=== PATIENT | female | born 1965 | race Caucasian/White ===

== ENCOUNTER 2024-04-22 13:27 | Outpatient (OUT) | payer BC, OTHER, SELFPAY ==
--- NOTE | 2024-04-22 13:36 | MM_ITS ---
Patient Name: DANY KHANNA MR#: [id number] : 1965 Exam Date: 04/22/2024 Ordering Doctor: DR Bishop Garcia . RADIOLOGY REPORT PROCEDURE: MM TOMOSYNTHESIS SCREENING BI COMPARISON: MG MAMM SCREEN JAIME W CAD, 02/22/2018. MG MAMM SCREEN JAIME W CAD, 11/28/2016. INDICATIONS: Screening Calculator Name NCI Breast Cancer Risk Assessment Tool 5 Year Breast Cancer Risk 2.60% Lifetime Breast Cancer Risk 15.40% Personal Breast Cancer No Personal Ovarian Cancer No Treatments None Family Cancers Sister with breast cancer at age 46; Grandmother-maternal with breast cancer at age 86; Mother with liver cancer at age 53. LOCATION: [facility] BREAST COMPOSITION: There are scattered areas of fibroglandular density. FINDINGS: DIAGNOSTIC CATEGORY 1--NEGATIVE. RIGHT BREAST: No significant suspicious finding. No significant change has occurred. LEFT BREAST: No significant suspicious finding. No significant change has occurred. RECOMMENDATIONS: ROUTINE MAMMOGRAM AND CLINICAL EVALUATION IN 12 MONTHS. PLEASE NOTE: A NORMAL MAMMOGRAM DOES NOT EXCLUDE THE POSSIBILITY OF BREAST CANCER. A CLINICALLY SUSPICIOUS PALPABLE LUMP SHOULD BE BIOPSIED. Dictated by: Jeramie Younger M.D. on 04/27/2024 at 08:24 Approved by: Jeramie Younger M.D. on 04/27/2024 at 09:32
== END 2024-04-22 13:28 | disposition home or self-care (01) ==
LOC: MAMMO 13:31
PROVIDERS: PCP Family Medicine; Visit Provider Family Medicine
DX: Z12.31 Encounter for screening mammogram for malignant neoplasm of breast (principal); Z80.3 Family history of malignant neoplasm of breast; Z80.8 Family history of malignant neoplasm of other organs or systems
CPT/HCPCS: 77063; 77067

== ENCOUNTER 2025-05-04 11:44 | Emergency (ER) | payer OTHER, BC, SELFPAY ==
--- OUTSIDE RECORDS SUMMARY | 2015-05-12 08:59 | XMS_ITS | Continuity of Care Document ---
Author Organization [facility] Address [address] [place] [address] Phone Care Team Providers Care Literacy Consultant Name Role Phone No Information Unavailable Unavailable Allergies, Adverse Reactions, Alerts Substance Reaction Status Criticality No Known Allergies Active No Inform ation Medications Medication Instructions Dosage Effective Dates (start - stop) Status Comments MULTIVITAMINS (unknown strength) Not Available - Active CINNAMON (unknown strength) Not Available - Active FISH OIL (unknown strength) Not Available - Active Problems Condition Type Effective Dates (start - stop) Clini afua Status Comments No Known Problems Procedures Procedure Date Cytopath Cerv/vag Thin Prep; R 15 Preven Meds E&m Estab Pt; 015 Smear Prim W/intrpt; Wet Mnt W 14 Cytopath Cerv/vag Thin Prep; R 14 Preven Meds E&m Estab Pt; 014 Cytopath Cerv/vag Thin Prep; R 13 Preven Meds E&m Estab Pt; 013 Preven Meds E&m Estab Pt; 012 Cytopath Cerv/vag Thin Prep; R 12 Init Preven Meds E&m New Pt; Cytopath Cerv/vag Thin Prep; R 11 Advance Directives Directive Yes / No Effective Date File Name No Information Encounters Encounter Description Practice Location Reason(s) For Visit Diagnoses Date Provider Providers Copied on Encounter [facility], [address], [place], [place], [id number], [place] tel:[phone] No Information 5 No Information Preven Meds E&m Estab Pt; [facility], [address], [place], [place], [id number], [place] tel:[phone] SWOB-ZH annual (chief complaint) 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 [address], [facility] [address], [place], [place], [facility], [place]. tel:[phone] Preven Meds E&m Estab Pt; [facility], [address], [place], [place], [id number], [place] tel:[phone] SWOB-ZH annual (chief complaint) vag itching (chief complaint) ROUTINE CAREER DEVELOPMENT CONSULTANT EXAMINATIONLe ukorrhea 4 Papito Price. [address], [facility] [address], [place], [place], [facility], [place]. tel:[phone] Preven Meds E&m Estab Pt; [facility], [address], [place], [place], [id number], [place] tel:[phone] SWOB-ZH annual exam (chief complaint) Routine CAREER DEVELOPMENT CONSULTANT Exam W/wo A Pap 3 Papito Price. [address], [facility] [address], [place], [place], [facility], [place]. tel:[phone] Preven Meds E&m Estab Pt; [facility], [address], [place], [place], [id number], [place] tel:[phone] SWOB-ZH No Information 2 Papito Price. [address], [facility] [address], [place], [address], [place]. tel:[phone] Init Preven Meds E&m New Pt; [facility], [address], [place], [place], [id number], [place] tel:[phone] [facility] [employer] SUPERVISOR No Information [address] [place], [facility], [place]. tel:[phone] Family History Family Member Type Diagnosis Age At Onset Paternal grandfather Problem (finding) hypertension Maternal grandmother Problem (finding) breast cancer Paternal grandfather Problem (finding) Pacemaker Father Problem (finding) hypertension Paternal grandmother Problem (finding) hypertension Paternal grandmother Problem (finding) Pacemaker Maternal grandmother Problem (finding) osteoporosis Payers Payer name Insurance type Covered constitution party ID Authoriza tijosh(s) Debbi Other (W) CI [id number] Social History Type Description Quantity Date Captured Comments Sex Female Smoking Status No Information Chief Complaint And Reason For Visit No Information Reason For Referral Reason For Referral No Information History Of Present Illness Encounter Date Complaint History Of Prese nt Illness annual Pt is a 49 y/o G [id number] who presents to the office today for her annual exam. She denies complaints at this time. For contraception she is currently using a vasectomy. Her most recent pap smear was last year and it was normal. Her FDLMP was 04/21/2015. Pt states that her menses are regular and appropriate. Denies fevers, chills, CP/SOB, and dysuria. Her last mammogram was a couple months ago and it was normal. 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
[2025-05-04] VITALS (8 sets, daily range): BP systolic 153–179; BP diastolic 76–92; PULSE 63–82; TEMP 36.9; O2SAT 96–99; BMI 32.8
--- OUTSIDE RECORDS SUMMARY | 2025-05-04 12:24 | XMS_ITS | Encounter Summary ---
Author Organization [facility] Address [id number] [place] [address] Care Team Providers Care Rivet Maker Name Role Phone Bishop Garcia MD Primary Care Provider [phone] Reason for Visit * Reason Comments Med Refill Encounter Details Date Type Department Care Team (Late st Contact Info) Description 12/18/2020 Refill [facility] [address] [place] [address] 1 [place] [id number] Madhu Schuler MD [address] [place] [address], 1 [place], [place] [id number] Social History Tobacco Use Types Packs/Day Years Used Date Smoking Tobacco: Never Smokeless Tobacco: Never Alcohol Use Standard Drinks/Week Comments No 0 (1 standard drink = 0.6 oz pur e alcohol) Childcare Answer Date Recorded Childcare Unknown 12/29/2018 Employment Answer Date Recorded Employment Unknown 12/29/2018 Purpose - Life Answer Date Recorded Purpose and direction in life Unknown Comments Unknown Sex and Gender Information Value Date Recorded Sex Assigned at Not on file Legal Sex Female 12:01 PM EDT Gender Identity Not on file Sexual Orientation Not on file documented as of this encounter Miscellaneous Notes * Telephone Encounter - Keke Preston CMA - 12/18/2020 10:16 AM EDT Patient must call the office for an appointment documented in this encounter Plan of Treatment Not on file documented as of this encounter Visit Diagnoses Not on filedocumented in this encounter Care Teams Rivet Maker Relationship Specialty Start Date End Date Bishop Garcia MD PCP - General Family Medicine 05/20/21 documented as of this encounter
--- OUTSIDE RECORDS SUMMARY | 2025-05-04 12:24 | XMS_ITS | Clinical Summary ---
Author Organization [facility] Address [id number] [place] [address] Care Team Providers Care Screen Door Maker Name Role Phone Bishop Garcia MD Primary Care Provider [phone] Allergies Active Allergy Reactions Criticality Noted Date Comments Nebivolol Itching 12/01/2019 Loratadine Rash Low 01/02/2017 Lisinopril Swelling 12/01/2019 Tounge/Throat Swelling Medications estrogens, conjugated, (PREMARIN) 0.625 mg tablet Take 0.625 mg by mouth daily. Take daily for 21 days then do not take for 7 days. Active spironolactone (ALDACTONE) 25 mg tablet Take 1 tablet (25 mg total) by mouth daily. 30 tablet 09/14/2020 Active losartan-hydroCH LOROthiazide (HYZAAR) 100-25 mg per tablet Take 1 tablet by mouth daily. 30 tablet 09/14/2020 Active bisoprolol (ZEBETA) 5 mg tablet Take 1 tablet (5 mg total) by mouth daily. 30 tablet 11/12/2020 Active Active Problems Problem Noted Date Diagnosed Date First degree atrioventricular block 12/01/2019 Essential hypertension 12/01/2019 Aortic stenosis due to bicuspid aortic valve Other chest pain 12/01/2019 Abnormal ECG 12/01/2019 Encounter for lipid screening for cardiovascular disease 12/01/2019 Family History Medical History Relation Name Comments Breast cancer Maternal Grandmother Relation Name Status Comments Maternal Grandmother Social History Tobacco Use Types Packs/Day Years [...] on file Sexual Orientation Not on file Last Filed Vital Signs Vital Sign Reading Time Taken Comments Blood Pressure 116/82 12/01/2019 9:03 AM EDT Pulse 68 12/01/2019 9:03 AM EDT Temperature 36.4 C (97.5 F) 01/02/2017 10:27 AM EDT Respiratory Rate 17 01/02/2017 12:10 PM EDT Oxygen Saturation 97% 01/02/2017 12:19 PM EDT Inhaled Oxygen Concentration - - Weight 93 kg (205 lb) 12/01/2019 9:03 AM EDT Height 160 cm (5' 3 ) 12/01/2019 9:03 AM EDT Body Mass Index 36.31 12/01/2019 9:03 AM EDT Plan of Treatment Health Maintenance Due Date Last Done Comments Depression Screening 1978 Tobacco Screening 1978 Adult BMI Screening 1984 Pap Smear 1987 Zoster (Shingles) Vaccine (1 of 2) 2016 Influenza Vaccine 03/20/2025 DTaP,Tdap and Td Vaccines (2 - Td or Tdap) 11/26/2030 11/26/2020 Medical Devices Not on file Insurance [id number] Care Teams Screen Door Maker Relationship Specialty Start Date End Date Bishop Garcia MD PCP - General Family Medicine 05/20/21
--- OUTSIDE RECORDS SUMMARY | 2025-05-04 12:24 | XMS_ITS | Encounter Summary ---
Author Organization [facility] Address [id number] [place] [address] Care Team Providers Care Boat Loader Name Role Phone Bishop Garcia MD Primary Care Provider [phone] Reason for Visit * Reason Comments Med Refill Encounter Details Date Type Department Care Team (Late st Contact Info) Description 12/12/2020 Refill [facility] [address] [place] [address] 1 [place] [id number] Madhu Schuler MD [address] [place] [address], 1 [place], [place] [id number] Social History Tobacco Use Types Packs/Day Years [...] on file documented as of this encounter Plan of Treatment Not on file documented as of this encounter Visit Diagnoses Not on filedocumented in this encounter Care Teams Boat Loader Relationship Specialty Start Date End Date Bishop Garcia MD PCP - General Family Medicine 05/20/21 documented as of this encounter
--- OUTSIDE RECORDS SUMMARY | 2025-05-04 12:24 | XMS_ITS | Patient Health Record ---
Author Organization [facility] [place] Address [address] [place] [address] Care Team Providers Care Law Professor Name Role Phone Madhu Schuler MD Primary Care Provider Unavaila ble Reason For Referral No Information Medications Medication SIG (Take, Route, Fr equency, Duration) Notes Start Date End Date Status traMADol HCl 50 mg tablet Active Aleve sodium 220 mg tablet Active Plan Of Treatment No Information Insurance Providers Payer Name Payer Address Payer Phone Subscriber Number Group Number Insured Name Patient Relationship to Insured Coverage Start Date Coverage End Date SELF PAY ON PATIENT DEMOGRAPHICS Angelica Juarez Self - patient is the insured 0 Medical (General) History Surgical History Surgery Date(Month/Year) History of hysterectomy History of appendectomy Surgical / procedural history ROTATOR CU FF LEFT SHOULDER History of cholecystectomy History of hernia repair
--- OUTSIDE RECORDS SUMMARY | 2025-05-04 12:24 | XMS_ITS | Encounter Summary ---
Author Organization [facility] Address [address] [place] [address] Care Team Providers Care Graduate Teacher Education Name Role Phone Bishop Garcia MD Primary Care Provider [phone] Bishop Garcia MD Unavailable Bishop Garcia MD Unavailable Encounter Details Date Type Department Care Team (Late st Contact Info) Description 04/27/2024 Clinisync Result Encounter [facility] External Department Unsolicited Bishop Garcia MD [address] [place] [phone] Social History Tobacco Use Types Packs/Day Years Used Date Smoking Tobacco: Never Smokeless Tobacco: Never Alcohol Use Standard Drinks/Week Comments Yes 0 (1 standard drink = 0.6 oz pure alcohol) caffeine: 2-3 cups per day soda/pop Social Connection and Isolation Panel Answer Date Recorded In a typical week, how many times do you talk on the phone with family, friends, or neighbors? Patient declined 10/30/2023 How often do you get togethe r with friends or relatives? Patient declined 10/30/2023 How often do you attend mormonism or mu-ism serv ices? Patient declined 10/30/2023 Do you belong to any clubs o r organizations such as mormonism groups, unions, fraternal or athletic groups, or school groups? No 10/30/2023 How often do you attend meet ings of the clubs or organizations you belong to? Never 10/30/2023 Are you , , di vorced, , never , or living with a partner? 10/30/2023 AUDIT-C Answer Date Recorded Q1: How often do you have a drink containing alc ohol? Monthly or less 10/30/2023 Q2: How many drinks containi ng alcohol do you have on a typical day when you are drinking? 1 or 2 10/30/2023 Q3: How often do you have si x or more drinks on one occasion? Never 10/30/2023 Overall Financial Resource Strain (CARDIA) Answe r Date Recorded How hard is it for you to pa y for the very basics like food, housing, medical care, and heating? Not very hard 10/30/2023 PHQ-2 Answer Date Recorded Patient Health Questionnaire-2 Score 2 11/06/2023 Exercise Vital Sign Answer Date Recorde d On average, how many days pe r week do you engage in moderate to strenuous exercise (like a brisk walk)? Patient declined On average, how many minutes do you engage in exercise at this level? Patient declined 10/30/2023 Hunger Vital Sign Answer Date Recorded Within the past 12 months, y ou worried that your food would run out before you got the money to buy more. Sometimes true Within the past 12 months, t he food you bought just didn't last and you didn't have money to get more. Patient declined 06/2024 PRAPARE - Transportation Answer Date Re corded In the past 12 months, has l ack of transportation kept you from medical appointments or from getting medications? No 10/18 In the past 12 months, has l ack of transportation kept you from meetings, work, or from getting things needed for daily living? No 10/30/2023 Housing Stability Vital Sign Answer Ismael e Recorded In the last 12 months, was t here a time when you were not able to pay the mortgage or rent on time? No 10/30/2023 In the last 12 months, how many places have you lived? 1 10/30/2023 In the last 12 months, was t here a time when you did not have a steady place to sleep or slept in a penitentiary (including now)? No 10/30/2023 Comments Unknown Sex and Gender Information Value Date Recorded Sex Assigned at Female 09/24/2023 8:22 AM EST Legal Sex Female 11:01 PM EDT Gender Identity Female 09/24/2023 8:22 AM EST Sexual Orientation Not on file documented as of this encounter Plan of Treatment Not on file documented as of this encounter Procedures Procedure Name Priority Date/Time Associated Diagnosis Comments MM TOMOSYNTHESIS SCREENING BI 04/27/2024 9:32 AM EDT documented in this encounter Results * MM TOMOSYNTHESIS SCREENING BI (04/27/2024 9:32 AM EDT) Anatomical Region Laterality Modality Other 04/27/2024 9:32 AM EDT Narrative 04/27/2024 9:33 [place] [address] Mammography Report Signed Patient: ANGELICA JUAREZ MR#: [id number] : 1965 Acct:[id number] Age/Sex: 58 / F ADM Date: 04/22/24 Loc: MAMMO Attending Dr: Bishop Garcia M.D. Ordering Physician: Bishop Garcia M.D. Results: Date of Service: 04/22/24 Follow Up: Procedure(s): MM tomosynthesis screening BI Accession Number(s): [id number] cc: Bishop Garcia M.D. Patient Name: ANGELICA JUAREZ MR#: [id number] : 1965 Exam Date: 04/22/2024 Ordering Doctor: DR Bishop Garcia . RADIOLOGY REPORT PROCEDURE: MM TOMOSYNTHESIS SCREENING BI COMPARISON: MG MAMM SCREEN JAIME W CAD, 02/22/2018. MG MAMM SCREEN JAIME W CAD, 11/28/2016. INDICATIONS: Screening Calculator Name NCI Breast Cancer Risk Assessment Tool 5 Year Breast Cancer Risk 2.60% Lifetime Breast Cancer Risk 15.40% Personal Breast Cancer No Personal Ovarian Cancer No Treatments None Family Cancers Sister with breast cancer at age 46; Grandmother-maternal with breast cancer at age 86; Mother with liver cancer at age 53. LOCATION: [facility] BREAST COMPOSITION: There are scattered areas of fibroglandular density. FINDINGS: DIAGNOSTIC CATEGORY 1--NEGATIVE. RIGHT BREAST: No significant suspicious finding. No significant change has occurred. LEFT BREAST: No significant suspicious finding. No significant change has occurred. RECOMMENDATIONS: ROUTINE MAMMOGRAM AND CLINICAL EVALUATION IN 12 MONTHS. PLEASE NOTE: A NORMAL MAMMOGRAM DOES NOT EXCLUDE THE POSSIBILITY OF BREAST CANCER. A CLINICALLY SUSPICIOUS PALPABLE LUMP SHOULD BE BIOPSIED. Dictated by: Jeramie Younger M.D. on 04/27/2024 at 08:24 Approved by: Jeramie Younger M.D. on 04/27/2024 at 09:32 Dictated By: Jeramie Younger M.D. Signed By: 04/27/24932 DD/ 1 TD/TT: Renal Social Worker: Procedure Note Radiology, Radiologist, MD - 04/27/2024 [place] [address] Mammography Report Signed Patient: ANGELICA JUAREZ DMR#: [id number] : 1965Acct:[id number] Age/Sex: 58 / FADM Date: 04/22/24 Loc: MAMMO Attending Dr: Bishop Garcia M.D. Ordering Physician: Bishop Garcia M.D.Results: Date of Service: 04/22/24Follow Up: Procedure(s): MM tomosynthesis screening BI Accession Number(s): [id number] cc: Bishop Garcia M.D. Patient Name: ANGELICA JUAREZ MR#: [id number] : 1965 Exam Date: 04/22/2024 Ordering Doctor: DR Bishop Garcia . RADIOLOGY REPORT PROCEDURE: MM TOMOSYNTHESIS SCREENING BI COMPARISON: MG MAMM SCREEN JAIME W CAD, 02/22/2018. MG MAMM SCREEN JAIME W CAD, 11/28/2016. INDICATIONS: Screening Calculator Name NCI Breast Cancer Risk Assessment Tool 5 Year Breast Cancer Risk 2.60% Lifetime Breast Cancer Risk 15.40% Personal Breast Cancer No Personal Ovarian Cancer No Treatments None Family Cancers Sister with breast cancer at age 46;Grandmother-maternal with breast cancer at age 86; Mother with liver cancer at age 53. LOCATION: [facility] BREAST COMPOSITION: There are scattered areas of fibroglandulardensity. FINDINGS: DIAGNOSTIC CATEGORY 1--NEGATIVE. RIGHT BREAST: No significant suspicious finding. No significant changehas occurred. LEFT BREAST: No significant suspicious finding. No significant changehas occurred. RECOMMENDATIONS: ROUTINE MAMMOGRAM AND CLINICAL EVALUATION IN 12 MONTHS. PLEASE NOTE: A NORMAL MAMMOGRAM DOES NOT EXCLUDE THE POSSIBILITY OFBREAST CANCER. A CLINICALLY SUSPICIOUS PALPABLE LUMP SHOULD BE BIOPSIED. Dictated by: Jeramie Younger M.D. on 04/27/2024 at 08:24 Approved by: Jeramie Younger M.D. on 04/27/2024 at 09:32 Dictated By: Jeramie Younger M.D. Signed By:04/27/24932 DD/ 1 TD/TT: Renal Social Worker: Bishop Garcia MD [facility] Final Result documented in this encounter Visit Diagnoses Not on filedocumented in this encounter Care Teams Graduate Teacher Education Relationship Specialty Start Date End Date Bishop Garcia MD PCP - General Family Medicine 11/06/23 Bishop Garcia MD [address] [place] [phone] PCP - [employer] 12/19/23 Bishop Garcia MD [address] [place] [phone] PCP - Medical [employer] 06/19/21 07/19/99 documented as of this encounter
--- OUTSIDE RECORDS SUMMARY | 2025-05-04 12:24 | XMS_ITS | Clinical Summary ---
Author Organization [facility] Healthcare Address [address] [place] [address] Care Team Providers Care Grid Maker Name Role Phone Bishop Garcia MD Primary Care Provider [phone] Bishop Garcia MD Unavailable Allergies Active Allergy Reactions Criticality Noted Date Comments Nebivolol Hcl 07/22/2023 Loratadine 07/22/2023 Lactose Swelling,Rash Low 10/25/2024 Lisinopril 07/22/2023 Medications cholecalciferol (Vitamin D-3) 50 MCG (1999) capsule Take 2,000 Units by mouth in the morning. Active venlafaxine XR (Effexor XR) 75 MG 24 hr capsuleIndicati ons:Generalized anxiety disorder Take 1 capsule (75 mg) by mouth Daily Take with food. 30 capsule 3 12/27/2024 Active spironolactone (Aldactone) 25 MG tabletIndicatio ns:Essential hypertension, benign Take 1 tablet (25 mg) by mouth Daily 90 tablet 3 01/10/2025 Active losartan-hydroC HLOROthiazide (Hyzaar) 100-25 MG tabletIndicatio ns:Essential hypertension, benign Take 1 tablet by mouth Daily 90 tablet 3 01/10/2025 Active venlafaxine XR (Effexor XR) 150 MG 24 hr capsuleIndicati ons:Generalized anxiety disorder Take 1 capsule (150 mg) by mouth Daily Do not crush or chew. 30 capsule 3 03/06/2025 Active Active Problems Problem Noted Date Diagnosed Date Chest pain 12/27/2024 Assessment & Plan (12/27/2024 2:41 PM EDT): Recent pain and continued heaviness. Check treadmill cardiolyte to assess for ischemia. Lightheaded 12/27/2024 Assessment & Plan (12/27/2024 2:42 PM EDT): Check echo. Essential hypertension, benign 11/06/2023 Assessment & Plan (12/27/2024 2:41 PM EDT): BP controlled and monitor PRN. Assessment & Plan (01/11/2024 2:28 PM EDT): BP controlled and monitor PRN. Assessment & Plan (12/07/2023 3:22 PM EDT): BP controlled and monitor PRN. Assessment & Plan (11/06/2023 9:44 AM EDT): BP controlled and monitor PRN. Chronic pain of both knees 11/06/2023 DDD (degenerative disc disease), lumbar 11/06/19 Generalized anxiety disorder 11/06/2023 Assessment & Plan (12/27/2024 2:42 PM EDT): Worsening symptoms and add effexor. Assessment & Plan (01/11/2024 2:38 PM EDT): Mood well controlled with effexor and continue at current dose. Assessment & Plan (12/07/2023 3:22 PM EDT): Symptoms worse and increase effexor. Warned will take 2-3 months to notice improvement in mood. Generalized osteoarthrosis, involving multiple s ites 11/06/2023 Assessment & Plan (11/06/2023 9:44 AM EDT): Pain in multiple joints and relafen not helping. Try celebrex. Vitamin D deficiency 11/06/2023 Greater trochanteric bursitis of right hip 11/05 Assessment & Plan (01/11/2024 2:38 PM EDT): Pain improved after injection and follow with ortho. Assessment & Plan (12/07/2023 3:23 PM EDT): No improvement in pain and continues to limit activity. Use daypro and ice PRN. Refer to ortho for possible injections. Assessment & Plan (11/06/2023 9:44 AM EDT): Severe pain and tenderness with palpation. Treat with prednisone. Ice PRN. Handout with exercises to patient. If no improvement will need ortho for possible injections. Class 1 obesity due to exces s calories with serious comorbidity and body mass index (BMI) of 32.0 to 32.9 in adult 11/06/2023 Assessment & Plan (01/11/2024 2:38 PM EDT): Patient doing well with adipex and lost 13 pounds in 2 months. Tolerating well with only mild dry mouth. Continue with dietary changes and less calories. Need to limit snacking and smaller portions. Continue healthier choices. Need regular aerobic exercise 30 minutes at a time 5-6 days a week. Refill for another month. OARRS reviewed. Continue meds as prescribed. If develop new or worsening symptoms contact office. Assessment & Plan (12/07/2023 3:23 PM EDT): Patient doing well with adipex and lost 7 pounds in first month. Tolerating well with only mild dry mouth. Continue with dietary changes and less calories. Need to limit snacking and smaller portions. Continue healthier choices. Need regular aerobic exercise 30 minutes at a time 5-6 days a week. Refill for second month. OARRS reviewed. Continue meds as prescribed. If develop new or worsening symptoms contact office. Assessment & Plan (11/06/2023 9:44 AM EDT): Patient overweight and difficult time losing weight. Discussed proper diet and regular aerobic exercise. Recommend Weight Watchers and need to limit calories and smaller portions. Need to increase activity and regular aerobic exercise several days a week for 30 minutes at a time. Interested in adipex and warned of potential cardiac side effects. Script written for first month and will need to recheck weight in 1 month. OARRS reviewed. Continue medications as prescribed. Aortic stenosis due to bicuspid aortic valve ( [facility]) 12/01/2019 Assessment & Plan (12/27/2024 2:41 PM EDT): Frequently lightheaded and check echo. Resolved Problems Problem Noted Date Diagnosed Date Resolved Date Chronic superficial gastriti s without bleeding 11/06/2023 01/11/2024 Left arm pain 11/06/2023 12/27/2024 Encounters Date Type Department Care Team Description 03/06/2025 Refill [facility] [address] [place] [address] Bishop Garcia MD Generalized anxiety disorder from Last 3 Months Family History Medical History Relation Name Comments Heart disease Maternal Grandfather Hypertension Maternal Grandfather Stroke Maternal Grandfather Cancer Maternal Grandmother Diabetes Maternal Grandmother Heart disease Mother Hypertension Mother Liver cancer Mother Breast cancer Sibling Relation Name Status Comments Maternal Grandfather Maternal Grandmother Mother Sibling Social History Tobacco Use Types Packs/Day Years Used Date Smoking Tobacco: Never Smokeless Tobacco: Never Tobacco Cessation:Counseling Given: Not Answered Alcohol Use Standard Drinks/Week Comments Yes 0 [...] declined 10/30/2023 How often do you attend sabianism or confucianism serv ices? Patient declined 10/30/2023 Do you belong to any clubs o r organizations such as sabianism groups, unions, fraternal or athletic groups, or [...] place to sleep or slept in a custodial (including now)? No 10/30/2023 Comments Unknown Sex and Gender Information Value Date Recorded Sex Assigned at Female 09/24/2023 8:22 AM EST Legal Sex Female 11:01 PM EDT Gender Identity Female 09/24/2023 8:22 AM EST Sexual Orientation Not on file Last Filed Vital Signs Vital Sign Reading Time Taken Comments Blood Pressure 128/88 12/27/2024 2:06 PM EDT Pulse 44 12/27/2024 2:06 PM EDT Temperature 36.2 C (97.2 F) 12/27/2024 2:06 PM EDT Respiratory Rate 22 12/27/2024 2:06 PM EDT Oxygen Saturation 92% 12/27/2024 2:06 PM EDT Inhaled Oxygen Concentration - - Weight 85.7 kg (189 lb) 12/27/2024 2:06 PM EDT Height 162.6 cm (5' 4 ) 12/27/2024 2:06 PM EDT Body Mass Index 32.44 12/27/2024 2:06 PM EDT Plan of Treatment Health Maintenance Due Date Last Done Comments CT Colonography 1966 FIT-DNA 1966 FIT 1966 FOBT 1966 Sigmoidoscopy 1966 Pap Smear 1987 Cervical Cancer Screening 1996 HPV/Cotest 1996 Influenza Vaccine (#1) 2025 Mammogram 04/27/2025 04/27/2024, 08/0 12/2017, 11/28/2016, Additional history exists Colonoscopy 01/02/2027 01/02/2017 Colorectal Cancer Screening 01/02/2027 Goals Goal Patient Goal Type Associated Problems Recent Progress Patient-Stated? Author Help patient manage antidepressant medication Care Plan Patient on antidepressant monitoring plan No Marta Tello Baseline PHQ-9 Care Plan Baseline PHQ-9 No Marta Tello Procedures Procedure Name Priority Date/Time Associated Diagnosis Comments MM TOMOSYNTHESIS SCREENING BI 04/27/2024 9:32 AM EDT from Last 3 Months or Most Recently Relevant to Health Maintenance Results * MM TOMOSYNTHESIS SCREENING BI (04/27/2024 9:32 AM EDT) Anatomical Region Laterality Modality Other 04/27/2024 9:32 AM EDT Narrative 04/27/2024 9:33 AM EDT The [address] [address] Mammography Report Signed Patient: ANGELICA JUAREZ MR#: [id number] : 1965 Acct:[id number] Age/Sex: 58 / F ADM Date: 04/22/24 Loc: MAMMO Attending Dr: Bishop Garcai M.D. Ordering Physician: Bishop Garcia M.D. Results: Date of Service: 04/22/24 Follow Up: Procedure(s): MM tomosynthesis screening BI Accession Number(s): [id number] cc: Bishop Garcia M.D. Patient Name: ANGELICA JUAREZ MR#: [id number] : 1965 Exam Date: 04/22/2024 Ordering Doctor: [...] liver cancer at age 54. LOCATION: The [facility] BREAST COMPOSITION: There are scattered areas of [...] M.D. Signed By: 04/27/24932 DD/ 1 TD/TT: Disk Grinder: Procedure Note Radiology, Radiologist, - 04/27/2024 [place] [address] Mammography Report Signed Patient: ANGELICA JUAREZ DMR#: [id number] : 1965Acct:[id number] Age/Sex: 58 / FADM Date: 04/22/24 Loc: MAMMO Attending Dr: Bishop Garcia M.D. Ordering Physician: Bishop Garcia M.D.Results: Date of Service: 04/22/24Follow Up: Procedure(s): MM tomosynthesis screening BI Accession Number(s): [id number] cc: Bishop Garcia M.D. Patient Name: ANGELICA JUAREZ MR#: [id number] : 1965 Exam Date: 04/22/2024 Ordering Doctor: DR Bishop Velázquez RADIOLOGY REPORT PROCEDURE: MM TOMOSYNTHESIS SCREENING BI [...] liver cancer at age 54. LOCATION: The [facility] BREAST COMPOSITION: There are scattered areas of [...] Younger M.D. Signed By:04/27/24932 DD/ 1 TD/TT: Disk Grinder: Bishop Garcia MD [facility] Final Result from Last 3 Months or Most Recently Relevant to Health Maintenance Additional Health Concerns Active Problems Noted Date Diagnosed Date Patient on antidepressant monitoring plan 2024 Baseline PHQ-9 03/06/2025 Insurance [employer] Care Teams Grid Maker Relationship Specialty Start Date End Date Bishop Garcia MD PCP - General Family Medicine 11/06/23 Bishop Garcia MD [address] [place] [address] PCP - Medical [place] [employer] 06/19/21 07/19/99
--- OUTSIDE RECORDS SUMMARY | 2025-05-04 12:25 | XMS_ITS | CCD ---
Author Organization [facility] InformFormerly [facility] Care Team Providers Care 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 Name Role Phone BISHOP STARK Attending Unavailable BISHOP STARK Consulting Unavailable BISHOP STARK Primary Care Unavailable BISHOP STARK Admitting Unavailable Nori De La Fuente Unavailable Michelle Canales Unavailable Ángela Unger Unavailable Bishop Stark MD Primary Care Provider Bishop Stark MD Unavailable Bishop Stark MD Unavailable KIRK WALDRON Attending Unavailable KIRK WALDRON Referring Unavailable BISHOP STARK Attending Unavailable BISHOP STARK Attending Unavailable Allergies Allergy Classification Reported Allergen(s) Allergy Type Date of Onset Reaction(s) Facility (1 source) Loratadine Drug Allergy 3 [facility]ository (4 sources) Loratadine Drug Allergy Unknown [facility] Other (8 sources) Lisinopril Propensity to adverse reactions 4 [facility] (8 sources) Loratadine Propensity to adverse reactions 4 [facility] (8 sources) nebivolol Drug Allergy 4 [facility] (7 sources) Lactose (non-medical use) Propensity to adverse reactions 5 Swelling, Rash [facility] Healthcare Medications Current Medications Medication Drug Class(es) Dates Sig (Normalized) Sig (Original) [id number] 200 actuat albuterol 0.09 mg/actuat metered dose inhaler (3 sources) beta2-Adrenergic Agonist Start: 06-19-2023 take 2 puff(s) by inhalation every four to six hours as needed Albuterol Sulfate HFA 108 (90 Base) MCG/ACT 2 puffs as needed Inhalation every 4-6 hours for 14 days Jun, Active Start: 06-19-2023 take 2 puff(s) by in halation every four to six hours as needed Albuterol Sulfate HFA 108 (90 Base) MCG/ACT 2 puffs as needed Inhalation every 4-6 hours for 14 days Jun, Not-Taking/PRN benzonatate 100 mg oral capsule (3 sources) Non-narcotic Antitussive Start: 06-23-2023 take 1 capsule by mouth three times daily as needed Tessalon Perles 100 MG 1 capsule as needed Orally Three times a day for 7 days Jun, Active cholecalciferol 0.05 mg oral capsule (8 sources) Vitamin D take 1 capsule by mouth in the morning cholecalciferol (Vitamin D-3) 50 MCG (2000 UT) capsule Take 2,000 Units by mouth in the morning. Active hydroCHLOROthiazide 25 mg / losartan potassium 100 mg oral tablet (13 sources) Thiazide Diuretic, Angiotensin 2 Receptor Betito Start: 03-10-2024 End: 03-10-2025 take 1 tablet by mouth once daily losartan-hydroCHLOR Othiazide (Hyzaar) 100-25 MG tablet Indications: Essential hypertension, benign Take 1 tablet by mouth Daily 90 tablet 3 01/10/2025 Active take 1 tablet by ines th every twenty-four hours Losartan Potassium-HCTZ 50-12.5 MG 1 tab let Orally Once a day Active meloxicam 15 mg oral tablet (2 sources) Nonsteroidal Anti-inflammatory Drug Start: 10-25-2024 End: 11-15-2024 take 1 tablet by mouth once daily meloxicam (Mobic) 15 MG tablet Indications: Peroneal tendinitis of right lower extremity Take 1 tablet (15 mg) by mouth Daily for 21 days 21 tablet 10/25/2024 11/15/2024 Active predniSONE 20 mg oral tablet (1 source) Start: 07-07-2023 take 2 tablets by mouth once daily, then take 1-4 tablets by mouth once daily, then take 5-7 tablets by mouth once daily at mealtime predniSONE 20 MG 2 tablets Day 1-4, 1 tablet Day 5-7 Orally Once a day WITH FOOD for 7 days Jun, Active spironolactone 25 mg oral tablet (13 sources) Aldosterone Antagonist Start: 08-13-2023 End: 10-25-2025 take 1 tablet by mouth once daily spironolactone (Aldactone) 25 MG tablet Indications: Essential hypertension, benign Take 1 tablet (25 mg) by mouth Daily 90 tablet 3 01/10/2025 Active take 1 tablet by ines th every twelve hours Spironolactone 25 MG 1 tablet Orally Twi ce a day Active 24 hr venlafaxine 75 mg extended release oral capsule (12 sources) Serotonin and Norepinephrine Reuptake Inhibitor Start: 12-27-2024 take 1 capsule by mouth once daily at mealtime venlafaxine XR (Effexor XR) 75 MG 24 hr capsule Indications: Generalized anxiety disorder Take 1 capsule (75 mg) by mouth Daily Take with food. 30 capsule 3 12/27/2024 Active Start: 01-26-2024 take 1 capsule by mo uth once daily venlafaxine XR (Effexor XR) 150 MG 24 hr capsule Indications: Generalized anxiety disorder Take 1 capsule (150 mg) by mouth Daily Do not crush or chew. 30 capsule 3 01/26/2024 Active Completed/Discontinued Medications Medication Drug Class(es) Dates Sig (Normalized) Sig (Original) cephalexin 500 mg oral capsule (4 sources) Cephalosporin Antibacterial Start: 2 take 1 capsule by mouth every eight hours Cephalexin 500 MG 1 capsule Orally three times a day for 10 day(s) May, Not-Taking/PRN dextromethorphan hydrobromide 1.5 mg/ml / pyrilamine maleate 1.5 mg/ml oral solution (3 sources) Uncompetitive E-klkfrj-J-asparta te Receptor Antagonist, Sigma-1 Agonist Start: 3 take 10 mL by mouth every eight hours as needed [place] DM 7.5-7.5 MG/5ML 10 mL Orally every 8 hours for 5 days Jun, Not-Taking/PRN methylPREDNISolone (8 sources) Corticosteroid Start: 5 End: 5 methylPREDNISolone (Medrol Dospak) 4 MG tablets Indications: Peroneal tendinitis of right lower extremity Take as directed on package. 21 tablet 10/25/2024 12/27/2024 Discontinued Start: 10-25-2024 methylPREDNISo lone (Medrol Dospak) 4 MG tablets Indications: Peroneal tendinitis of right lower extremity Take as directed on package. 21 tablet 10/25/2024 Active Start: 06-19-2023 methylPREDNISo lone 4 MG as directed Orally for 6 Jun, Not-Taking/PRN PARoxetine (4 sources) Serotonin Reuptake Inhibitor PAR oxetine HCl Not-Taking/PRN PARoxetine HCl N ot-Taking PARoxetine HCl A ctive phentermine hydrochloride 37.5 mg oral tablet (3 sources) Sympathomimetic Amine Anorectic Start: 01-11-2024 End: 10-25-2024 take 1 tablet by mouth before mealtime phentermine (Adipex-P) 37.5 MG tablet Indications: Obesity (BMI 30-39.9) Take 1 tablet (37.5 mg) by mouth in the morning. Take before meals. 30 tablet 01/11/2024 10/25/2024 Discontinued (Therapy completed) Problems Active Problems Problem Classification Problem Date Documented Da te Episodic/Chronic Acute bronchitis (1 source) Acute bronchitis due to other specified organisms Episodic Anxiety disorders (10 sources) Generalized anxiety disorder; Translations: [Generalized anxiety disorder] Onset: 11-06-2023 11-06-2023 Chronic Conditions associated with dizziness or vertigo (8 sources) Lightheadedness; Translations: [Dizziness and giddiness] Onset: 12-27-2024 12-27-2024 Episodic Essential hypertension (13 sources) Benign essential hypertension; Translations: [Essential (primary) hypertension] Onset: 11-06-2023 11-06-2023 Chronic Gastritis and duodenitis (8 sources) Chronic superficial gastritis; Translations: [Chronic superficial gastritis without bleeding] Onset: 11-06-2023 Resolved: 01-11-2024 01-11-2024 Chronic Heart valve disorders (12 sources) Aortic valve stenosis; Translations: [Nonrheumatic aortic (valve) stenosis] Onset: 12-01-2019 11-06-2023 Chronic Nonspecific chest pain (12 sources) Chest pain; Translations: [Chest pain, unspecified] Onset: 12-27-2024 12-27-2024 Episodic Nutritional deficiencies (8 sources) Vitamin D deficiency; Translations: [Vitamin D deficiency, unspecified] Onset: 11-06-2023 11-06-2023 Chronic Open wounds of extremities (1 source) Puncture wound without foreign body, right foot, initial encounter Episodic Osteoarthritis (8 sources) Degenerative joint disease involving multiple joints; Translations: [Polyosteoarthritis, unspecified] Onset: 11-06-2023 11-06-2023 Chronic Other bone disease and musculoskeletal deformities (1 source) Chondrocostal junction syndrome [Tietze] Episodic Other connective tissue disease (2 sources) Peroneal tendinitis of right lower limb; Translations: [Peroneal tendinitis, right leg] 10-25-2024 Episodic Other connective tissue disease (2 sources) Pain in right foot; Translations: [Pain in right foot] 10-25-2024 Episodic Other nervous system disorders (2 sources) Difficulty walking; Translations: [Difficulty in walking, not elsewhere classified] 10-25-2024 Chronic Other non-traumatic joint disorders (2 sources) Instability of joint of right ankle; Translations: [Other instability, right ankle] 10-25-2024 Episodic Other nutritional; endocrine; and metabolic disorders (4 sources) Body mass index 30+ - obesity; Translations: [Obesity, unspecified] Onset: 11-06-2023 11-06-2023 Chronic Other nutritional; endocrine; and metabolic disorders (4 sources) Obesity caused by energy imbalance; Translations: [Class 1 obesity due to excess calories with serious comorbidity and body mass index (BMI) of 32.0 to 32.9 in adult] Onset: 11-06-2023 12-27-2024 Chronic Spondylosis; intervertebral disc disorders; other back problems (8 sources) Degeneration of lumbar intervertebral disc; Translations: [DDD (degenerative disc disease), lumbar] Onset: 11-06-2023 11-06-2023 Chronic Past or Other Problems Problem Classification Problem Date Documented Da te Episodic/Chronic Other connective tissue disease (8 sources) Pain in left arm; Translations: [Pain in left arm] Onset: 11-06-2023 Resolved: 12-27-2024 11-06-2023 Episodic Other connective tissue disease (8 sources) Trochanteric bursitis; Translations: [Trochanteric bursitis, right hip] Onset: 11-06-2023 11-06-2023 Episodic Other non-traumatic joint disorders (8 sources) Pain in right knee; Translations: [Pain in joint, lower leg] Onset: 11-06-2023 11-06-2023 Episodic Unclassified (1 source) Cough, unspecified type R05.9 Results Test Name Value Interpretation Reference Range Facility XR Foot - right 3 [facility] Result: AP, medial oblique, lateral views are weight-bearing. Decreased calcaneal inclination, increased talar declination. N/C J fault. Enlarged posterior process of the talus. Lateral deviation of the sesamoid complex. Possible bipartite os peroneum. No acute fractures or dislocations noted. Eventdoocar e Radiology Study observation (narrative) [employer] COVID Quick Testingon 2022 Result Negative [facility] Other CBC AUTO DIFFon 06-27-2020 Basophils (Bld) [#/Vol] 0.1 103/ul Normal 0.0-0.1 [facility] Comment on above: Performed By: #### C BC #### [facility] [address] [place], [place] [id number] Farheen Kim Basophils/100 WBC (Bld) 1.1 % Normal 0.2-2.0 [facility] Comment on above: Performed By: #### C BC #### [facility] [address] [place], [place] [phone] Farheen Kim Eosinophils (Bld) [#/Vol] 0.2 103/ul Normal 0.0-0.7 [facility] Comment on above: Performed By: #### C BC #### [facility] [address] [place], [place] [phone] Farheen Kim Eosinophils/100 WBC (Bld) 2.1 % Normal 0.9-7.0 [facility] Comment on above: Performed By: #### C BC #### [facility] [address] [place], [place] [phone] Farheen Kim Erythrocyte distribution width (RBC) [Ratio] 12.6 % Normal 11.0-15.0 [facility] Comment on above: Performed By: #### C BC #### [facility] [address] [place], [place] [phone] Farheen Kim Hematocrit (Bld) [Volume fraction] 40.4 % Normal 36.0-48.0 [facility] Comment on above: Performed By: #### C BC #### [facility] [address] [place], [place] [phone] Farheen Kim Hemoglobin (Bld) [Mass/Vol] 13.2 g/dL Normal 12.0-16.0 [facility] Comment on above: Performed By: #### C BC #### [facility] [address] [place], [place] [address] Farheen Kim IG # 0.03 10e3/ul Normal 0.00-0.03 [facility] Comment on above: Performed By: #### C BC #### [facility] [address] [place] [address] Farheen Kim IG % 0.3 % Normal 0.0-0.5 [facility] Comment on above: Performed By: #### C BC #### [facility] [address] [place] [address] Farheen Kim Lymphocytes (Bld) [#/Vol] 2.4 103/ul Normal 1.2-3.8 [facility] Comment on above: Performed By: #### C BC #### [facility] [address] [place], [place] [phone] Farheen Kim Lymphocytes/100 WBC (Bld) 27.9 % Normal 20.5-60.0 [facility] Comment on above: Performed By: #### C BC #### [facility] [address] [place], [place] [phone] Farheenzack Canen MANUAL DIFF REQ NO Normal [facility] Comment on above: Performed By: #### C BC #### [facility] [address] [place], [place] [phone] Farheen Kim MCH (RBC) [Entitic mass] 29.9 pg Normal 26.7-34.0 [facility] Comment on above: Performed By: #### C BC #### [facility] [address] [place] [address] Farheen Kim MCHC (RBC) [Mass/Vol] 32.7 g/dL Normal 29.9-35.2 [facility] Comment on above: Performed By: #### C BC #### [facility] [address] [place], [place] [address] Farheen Kim MCV (RBC) [Entitic vol] 91.4 fL Normal 81.0-99.0 [facility] Comment on above: Performed By: #### C BC #### [facility] [address] [place], [place] [address] Farheen Kim Monocytes (Bld) [#/Vol] 0.5 103/ul Normal 0.3-0.8 [facility] Comment on above: Performed By: #### C BC #### [facility] [address] [place], [place] [phone] Farheen Kim Monocytes/100 WBC (Bld) 5.6 % Normal 1.7-12.0 [facility] Comment on above: Performed By: #### C BC #### [facility] [address] [place], [place] [phone] Farheen Kim Neutrophils (Bld) [#/Vol] 5.5 103/ul Normal 1.4-6.5 [facility] Comment on above: Performed By: #### C BC #### [facility] [address] [place], [place] [address] Farheen Kim Neutrophils/100 WBC (Bld) 63.0 % Normal 43.0-75.0 [facility] Comment on above: Performed By: #### C BC #### [facility] [address] [place], [place] [phone] Farheen Kim Platelet mean volume (Bld) [Entitic vol] 10.0 fL Normal 9.5-13.5 [facility] Comment on above: Performed By: #### C BC #### [facility] [address] [place] [address] Farheen Kim Platelets (Bld) [#/Vol] 294 103/ul Normal 150-450 [facility] Comment on above: Performed By: #### C BC #### [facility] [address] [place] [address] Farheen Kim RBC (Bld) [#/Vol] 4.42 106/ul Normal 4.20-5.40 [facility] Comment on above: Performed By: #### C BC #### [facility] [address] [place], [place] [address] Farheen Alvarez WBC (Bld) [#/Vol] 8.7 103/ul Normal 4.0-11.0 [facility] Comment on above: Performed By: #### C BC #### [facility] [address] [place], [place] [address] Farheenzack Alvarez GLYCOHEMOGLOBIN A1Con 2019 Glucose [Mass/Vol] 111 mg/dL Normal [facility] Comment on above: Performed By: #### A 1C #### [facility] [address] [place] [address] Farheen Alvarez HbA1c (Bld) [Mass fraction] 5.5 % Normal <=6.0 [facility] Comment on above: Performed By: #### A 1C #### [facility] [address] [place], [place] [phone] Farheenzack Alvarez LIPID PROFILEon 06-27-2020 CHOL-HDL RATIO NORM SEE BELOW Normal [facility] Comment on above: Result Comment: 3.3 - 4.4 LOW RISK 4.4 - 7.1 AVERAGE RISK 7.1 - 11.0 MODERATE RISK >11.0 HIGH RISK Performed By: #### L IPID, TSH, BMP, LIVER #### [facility] [address] [place] [address] Farheen Kim Cholesterol [Mass/Vol] 227 mg/dL Critically high <=200 [facility] Comment on above: Performed By: #### L IPID, TSH, BMP, LIVER #### [facility] [address] [place], [place] [address] Farheen Kim Cholesterol in HDL [Mass/Vol] 56 mg/dL Normal [facility] Comment on above: Performed By: #### L IPID, TSH, BMP, LIVER #### [facility] [address] [place] [address] Farheen Kim Cholesterol in HDL [Mass/Vol] > or = 60 mg/dl - LOW CARDIOVASCULAR RISK <40 mg/dl - HIGH CARDIOVASCULAR RISK Normal [facility] Comment on above: Performed By: #### L IPID, TSH, BMP, LIVER #### [facility] [address] [place], [place] [phone] Farheen Kim Cholesterol in LDL [Mass/Vol] SEE BELOW Normal [facility] Comment on above: Result Comment: <100 mg/dl OPTIMAL 100 - 129 mg/dl NEAR OR ABOVE OPTIMAL 130 - 159 mg/dl BORDERLINE HIGH 160 - 189 mg/dl HIGH >190 mg/dl VERY HIGH Performed By: #### L IPID, TSH, BMP, LIVER #### [facility] [address] [place] [address] Farheen Kim Cholesterol in LDL [Mass/Vol] 136.2 mg/dL Normal [facility] Comment on above: Performed By: #### L IPID, TSH, BMP, LIVER #### [facility] [address] [place] [address] Farheen Kim Cholesterol.total/Ch olesterol in HDL [Mass ratio] 4.1 {ratio} Normal [facility] Comment on above: Performed By: #### L IPID, TSH, BMP, LIVER #### [facility] [address] [place], [place] [address] Farheen Kim Triglyceride [Mass/Vol] 174 mg/dL Critically high <=150 [facility] Comment on above: Performed By: #### L IPID, TSH, BMP, LIVER #### [facility] [address] [place], [place] [address] Farheen Kim VLDL CALC 34.8 mg/dL Normal [facility] Comment on above: Performed By: #### L IPID, TSH, BMP, LIVER #### [facility] [address] [place] [address] Farheen Kim LIVER PROFILEon 06-27-2020 Albumin [Mass/Vol] 4.0 g/dL Normal 3.5-5.0 [facility] Comment on above: Performed By: #### L IPID, TSH, BMP, LIVER #### [facility] [address] [place] [address] Farheen Kim Albumin/Globulin [Mass ratio] 1.3 {ratio} Normal [facility] Comment on above: Performed By: #### L IPID, TSH, BMP, LIVER #### [facility] [address] [place] [address] Farheen Kim ALP [Catalytic activity/Vol] 103 U/L Normal 38-126 [facility] Comment on above: Performed By: #### L IPID, TSH, BMP, LIVER #### [facility] [address] [place] [address] Farheen Kim ALT [Catalytic activity/Vol] 32 U/L Normal 9-52 [facility] Comment on above: Performed By: #### L IPID, TSH, BMP, LIVER #### [facility] [address] [place] [address] Farheen Kim AST [Catalytic activity/Vol] 19 U/L Normal 14-36 [facility] Comment on above: Performed By: #### L IPID, TSH, BMP, LIVER #### [facility] [address] [place] [address] Farheen Kim BILI, CONJUGATED 0.1 mg/dL Normal 0.0-0.3 [facility] Comment on above: Performed By: #### L IPID, TSH, BMP, LIVER #### [facility] [address] [place] [address] Farheen Kim Bilirubin Ql (U) 0.7 mg/dL Normal 0.2-1.3 [facility] Comment on above: Performed By: #### L IPID, TSH, BMP, LIVER #### [facility] [address] [place] [address] Farheen Kim Globulin (S) [Mass/Vol] 3.0 g/dL Normal [facility] Comment on above: Performed By: #### L IPID, TSH, BMP, LIVER #### [facility] [address] [place], [place] [phone] Farheen Kim Protein [Mass/Vol] 7.0 g/dL Normal 6.1-8.2 [facility] Comment on above: Performed By: #### L IPID, TSH, BMP, LIVER #### [facility] [address] [place] [address] Farheen Kim PROF CHEM 8 (BAS METB)on Anion gap [Moles/Vol] 11.5 mmol/L Normal [facility] Comment on above: Performed By: #### L IPID, TSH, BMP, LIVER #### [facility] [address] [place] [address] Farheen Kim Calcium [Mass/Vol] 9.7 mg/dL Normal 8.4-10.2 [facility] Comment on above: Performed By: #### L IPID, TSH, BMP, LIVER #### [facility] [address] [place] [address] Farheen Kim Chloride [Moles/Vol] 107 mmol/L Normal 98-107 [facility] Comment on above: Performed By: #### L IPID, TSH, BMP, LIVER #### [facility] [address] [place] [address] Farheen Kim CO2 [Moles/Vol] 28.7 mmol/L Normal 22.0-30.0 [facility] Comment on above: Performed By: #### L IPID, TSH, BMP, LIVER #### [facility] [address] [place] [address] Farheen Kim Creatinine [Mass/Vol] 1.01 mg/dL Normal 0.52-1.04 [facility] Comment on above: Performed By: #### L IPID, TSH, BMP, LIVER #### [facility] [address] [place] [address] Farheen Kim EGFR-AF TAJIK >60 Normal >=60 [facility] Comment on above: Performed By: #### L IPID, TSH, BMP, LIVER #### [facility] [address] [place] [phone] Farheen Kim EGFR-NON AF TAJIK 57 mL/min/1.73m2 Critically low >=60 [facility] Comment on above: Performed By: #### L IPID, TSH, BMP, LIVER #### [facility] [address] [place] [address] Farheen Kim Glucose [Mass/Vol] 91 mg/dL Normal 74-106 [facility] Comment on above: Performed By: #### L IPID, TSH, BMP, LIVER #### [facility] [address] [place] [address] Farheen Kim Potassium [Moles/Vol] 4.2 mmol/L Normal 3.4-5.0 [facility] Comment on above: Performed By: #### L IPID, TSH, BMP, LIVER #### [facility] [address] [place] [address] Farheen Kim Sodium [Moles/Vol] 143 mmol/L Normal 137-145 [facility] Comment on above: Performed By: #### L IPID, TSH, BMP, LIVER #### [facility] [address] [place] [address] Farheen Kim Urea nitrogen [Mass/Vol] 24.0 mg/dL Critically high 7.0-17.0 [facility] Comment on above: Performed By: #### L IPID, TSH, BMP, LIVER #### [facility] [address] [place] [address] Farheen Kim Urea nitrogen/Creatinine [Mass ratio] 23.8 mg/mg Normal [facility] Comment on above: Performed By: #### L IPID, TSH, BMP, LIVER #### [facility] [address] [place] [address] Farheen Kim TSHon 06-27-2020 TSH Qn SEE BELOW Normal [facility] Comment on above: Result Comment: <0.3 4 UIU/ml HYPERTHYROID 0.34-5.60 UIU/ml EUTHYROID >5.60 UIU/ml HYPOTHYROID Performed By: #### L IPID, TSH, BMP, LIVER #### [facility] [address] [place] [address] Farheen Kim TSH Qn 2.472 uIU/mL Normal 0.470-4.680 [facility] Comment on above: Performed By: #### L IPID, TSH, BMP, LIVER #### [facility] [address] [place] [address] Farheen Kim VITAMIN D 25 OHon 06-27-2020 VIT D 25-OH 21.7 ng/mL Normal [facility] Comment on above: Performed By: #### V ITAD #### [facility] [address] [place], [place] [address] Farheen Alvarez VIT D RANGES SEE BELOW Normal [facility] Comment on above: Result Comment: <20 ng/mL Vit D deficient 20 - <30 ng/mL Vit D insufficient 30 - 100 ng/mL Vit D sufficient >100 ng/mL Potential Toxicity Performed By: #### V ITAD #### [facility] [address] [place], [place] [address] Farheen Alvarez Vital Signs Date Time Vital Sign Value Performing Clinician Facility 12-27-2024 [id number] Body height 162.6 cm Bishop Stark MD Work Phone: [facility] 12-27-2024 14:06-0400 Body mass index (BMI) [Ratio] 32.44 kg/m2 Bishop Satrk MD Work Phone: [facility] 12-27-2024 14:06-0400 Body temperature 97.2 [degF] Bishop Stark MD Work Phone: [facility] [facility] 12-27-2024 14:06-0400 Body weight 85.73 kg Bishop Stark MD Work Phone: [facility] 12-27-2024 14:06-0400 Diastolic blood pressure 88 mm[Hg] Bishop Stark MD Work Phone: [facility] 12-27-2024 14:06-0400 Heart rate 44 /min Bishop Stark MD Work Phone: [facility] 12-27-2024 14:06-0400 Respiratory rate 22 /min Bishop Stark MD Work Phone: [facility] 12-27-2024 14:06-0400 SaO2% (BldA) [Mass fraction] 92 % Bishop Stark MD Work Phone: [facility] 12-27-2024 14:06-0400 Systolic blood pressure 128 mm[Hg] Bishop Stark MD Work Phone: [facility] [employer] 10-25-2024 13:43-0400 Body height 162.6 cm Kirk Waldron DPM Work Phone: [facility] [employer] 10-25-2024 13:43-0400 Body mass index (BMI) [Ratio] 30.04 kg/m2 Kirk Waldron DPM Work Phone: [facility] [employer] 10-25-2024 13:43-0400 Body weight 79.38 kg Kirk Waldron DPM Work Phone: [facility] [employer] 07-07-2023 18:10-0500 Body height 162.56 cm Ángela Unger Other [employer] Other 07-07-2023 18:10-0500 Body mass index (BMI) [Ratio] 34.57 kg/m2 Ángela Unger Other [employer] Other 07-07-2023 18:10-0500 Body temperature 98.3 [degF] Ángela Unger Other [employer] Other 07-07-2023 18:10-0500 Body weight 91.36 kg Ángela Unger Other [employer] Other 07-07-2023 18:10-0500 Diastolic blood pressure 99 mm[Hg] Ángela Unger Other [employer] Other 07-07-2023 18:10-0500 Respiratory rate 18 /min Ángela Unger Other [employer] Other 07-07-2023 18:10-0500 SaO2% (BldA) [Mass fraction] 96 % Ángela Unger Other [employer] Other 07-07-2023 18:10-0500 Systolic blood pressure 153 mm[Hg] Ángela Unger Other [employer] Other 06-19-2023 14:30-0500 Body height 162.56 cm Michelle Canales Other [employer] Other 06-19-2023 14:30-0500 Body mass index (BMI) [Ratio] 33.12 kg/m2 Michelle Canales Other [employer] Other 06-19-2023 14:30-0500 Body temperature 98.5 [degF] Michelle Canales Other [employer] Other 06-19-2023 14:30-0500 Body weight 87.54 kg Michelle Canales Other [employer] Other 06-19-2023 14:30-0500 Diastolic blood pressure 68 mm[Hg] Michelle Canales Other [employer] Other 06-19-2023 14:30-0500 Respiratory rate 18 /min Michelle Canales Other [employer] Other 06-19-2023 14:30-0500 SaO2% (BldA) [Mass fraction] 98 % Michelle Canales Other [employer] Other 06-19-2023 14:30-0500 Systolic blood pressure 125 mm[Hg] Michelle Canales Other [employer] Other 06-02-2022 17:10-0500 Body height 162.56 cm Nori De La Fuente Other [employer] Other 06-02-2022 17:10-0500 Body mass index (BMI) [Ratio] 33.12 kg/m2 Nori De LaF uente Other [employer] Other 06-02-2022 17:10-0500 Body temperature 97.3 [degF] Nori De La Fuente Other [employer] Other 06-02-2022 17:10-0500 Body weight 87.54 kg Nori De La Fuente Other [employer] Other 06-02-2022 17:10-0500 Diastolic blood pressure 87 mm[Hg] Nori De La Fuente Other [employer] Other 06-02-2022 17:10-0500 Respiratory rate 18 /min Nori De La Fuente Other [employer] Other 06-02-2022 17:10-0500 SaO2% (BldA) [Mass fraction] 98 % Nori De La Fuente Other [employer] Other 06-02-2022 17:10-0500 Systolic blood pressure 149 mm[Hg] Nori De La Fuente Other [employer] Other Encounters Encounter Date Encounter Type Care Provider Facility Start: 01-09-2025 End: 01-10-2025 Refill Bishop Stark MD Work Phone: [facility] Comment on above: Essential hypertensi on, benign Start: 01-02-2025 End: 01-02-2025 Telephone encounter Bishop Stark MD Work Phone: [facility] Start: 12-27-2024 End: 12-27-2024 Bamboo flowsheet Bishop Stark MD Work Phone: [facility] Start: 12-27-2024 End: 12-27-2024 Bamboo flowsheet Bishop Stark MD Work Phone: [facility] Start: 12-27-2024 End: 12-27-2024 Office outpatient visit 25 minutes Bishop Stark MD Work Phone: [facility] Comment on above: Lightheaded (Primary Dx); Chest pain, unspecified type; Aortic stenosis due to bicuspid aortic valve; Essential hypertension, benign (CMS/HCC); Generalized anxiety disorder (CMS/HCC); Annual physical exam Start: 12-27-2024 End: 12-27-2024 Patient encounter procedure Bishop Stark MD Work Phone: [facility] Start: 12-27-2024 End: 12-27-2024 ambulatory BISHOP STARK Not Available Start: 10-25-2024 End: 10-25-2024 Bamboo Venmoheet Kirk Waldron DPM Work Phone: [facility] Start: 10-25-2024 End: 10-25-2024 Bamboo flowsheet Kirk Waldron DPM Work Phone: [facility] Start: 10-25-2024 End: 10-25-2024 ambulatory KIRK WALDRON Not Available Start: 10-25-2024 End: 10-25-2024 Office outpatient new 45 minutes Kirk Waldron DPM Work Phone: [facility] Comment on above: Peroneal tendinitis of right lower extremity (Primary Dx); Right foot pain; Instability of right ankle joint; Difficulty walking Start: 01-11-2024 End: 01-11-2024 ambulatory BISHOP STARK Not Available Start: 07-07-2023 End: 07-07-2023 ambulatory Ángela Unger Other [employer] Other Start: 07-07-2023 Office outpatient vi sit 15 minutes Ángela Unger [facility] Start: 06-21-2023 End: 06-21-2023 ambulatory Michelle Canales Other [employer] Other Start: 06-21-2023 Telephone encounter Michelle Canales [facility] Start: 06-19-2023 End: 06-19-2023 ambulatory Michelle Canales Other [employer] Other Start: 06-19-2023 Office outpatient vi sit 25 minutes Michelle Canales [facility] Start: 06-02-2022 End: 06-02-2022 ambulatory Nori De La Fuente Other [employer] Other Start: 06-02-2022 Office outpatient vi sit 15 minutes Nori Leisa [facility] Start: 07-12-2020 Encounter for genera l adult medical examination without abnormal findings [facility] Start: 06-27-2020 End: 06-28-2020 Patient encounter procedure BISHOP Nathanael [facility] Facility:H1 Encounter for genera l adult medical examination without abnormal findings [facility] Procedures Date Procedure Procedure Detail Performing Clinician Start: 10-25-2024 Radex foot complete minimum 3 views Kirk Waldron DPM Work Phone: Start: 04-27-2024 Mammography Kirk carpio DPM Work Phone: Start: 01-02-2017 Colonoscopy Kirk carpio DPM Work Phone: Plan of Treatment Date Care Activity Detail Author Start: 01-02-2027 Screening for malign ant neoplasm of colon [facility] Start: 04-27-2025 Screening for malign ant neoplasm of breast Mammogram [facility] Start: 03-20-2025 Influenza vaccination Influenz a Vaccine (Season Ended) [facility] Start: 02-20-2025 End: 02-20-2025 Patient encounter procedure 02/20/2025 2:15 PM EDT Office Visit [facility] [address] [place] [address] Bishop Stark MD [address] [place] [id number] [facility] Start: 01-02-2025 End: 01-02-2026 Cardiac stress study Procedure STRESS TEST TREADMILL Imaging Routine Chest pain, unspecified type Lightheaded Expected: 01/02/2025 (Approximate), Expires: 01/02/2026 [facility] Work Phone: Comment on above: Expected: 01/02/2025 (Approximate), Expires: 01/02/2026 Start: 12-27-2024 End: 12-27-2025 Basic metabolic 1998 panel - Serum or Plasma Basic metabolic panel Lab Routine Annual physical exam Expected: 12/27/2024 (Approximate), Expires: 12/27/2025 [facility] Comment on above: Expected: 12/27/2024 (Approximate), Expires: 12/27/2025 Start: 12-27-2024 End: 12-27-2025 CBC W Auto Differential panel - Blood CBC and differential Lab Routine Annual physical exam Expected: 12/27/2024 (Approximate), Expires: 12/27/2025 [facility] Comment on above: Expected: 12/27/2024 (Approximate), Expires: 12/27/2025 Start: 12-27-2024 End: 12-27-2026 Echocardiogram 2D complete Echocardiogram 2D complete Echocardiography Routine Chest pain, unspecified type Aortic stenosis due to bicuspid aortic valve Expected: 12/27/2024 (Approximate), Expires: 12/27/2026 [facility] Comment on above: Expected: 12/27/2024 (Approximate), Expires: 12/27/2026 Start: 12-27-2024 End: 12-27-2025 Hemoglobin A1c/Hemoglobin.total in Blood Hemoglobin A1c Lab Routine Annual physical exam Expected: 12/27/2024 (Approximate), Expires: 12/27/2025 [facility] Work Phone: Comment on above: Expected: 12/27/2024 (Approximate), Expires: 12/27/2025 Start: 12-27-2024 End: 12-27-2025 Hepatic function 2000 panel - Serum or Plasma Hepatic function panel Lab Routine Annual physical exam Expected: 12/27/2024 (Approximate), Expires: 12/27/2025 [facility] Comment on above: Expected: 12/27/2024 (Approximate), Expires: 12/27/2025 Start: 12-27-2024 End: 12-27-2025 Lipid 1996 panel - Serum or Plasma Lipid panel Lab Routine Annual physical exam Expected: 12/27/2024 (Approximate), Expires: 12/27/2025 [facility] Comment on above: Expected: 12/27/2024 (Approximate), Expires: 12/27/2025 Start: 12-27-2024 End: 12-27-2026 NM Heart Perfusion W single state of exercise Stress test with myocardial perfusion Cardiac Nuclear Medicine Routine Chest pain, unspecified type Essential hypertension, benign (CMS/HCC) Expected: 12/27/2024 (Approximate), Expires: 12/27/2026 [facility] Comment on above: Expected: 12/27/2024 (Approximate), Expires: 12/27/2026 Start: 12-27-2024 End: 12-27-2024 Patient encounter procedure 12/27/2024 2:00 PM EDT [facility] [address] [place] [address] Bishop Stark MD [address] [place] [phone] Arrived [facility] Comment on above: Arrived Start: 12-27-2024 End: 12-27-2025 Thyrotropin [Units/volume] in Serum or Plasma TSH Lab Routine Annual physical exam Expected: 12/27/2024 (Approximate), Expires: 12/27/2025 [facility] Comment on above: Expected: 12/27/2024 (Approximate), Expires: 12/27/2025 Start: 1996 Screening for malign ant neoplasm of cervix [facility] Start: 1987 Screening for malign ant neoplasm of cervix Pap Smear [facility] Start: 1966 Screening for malign ant neoplasm of colon [facility] Immunizations Immunization Date Immunization Notes Care Provider Fa [facility] 06-02-2022 tetanus toxoid, reduced diphtheria toxoid, and acellular pertussis vaccine, adsorbed Nori Leisa Other [employer] Other Payers Date Payer Category Payer [facility] [[email or web address] [place] [id number] 2023 Private Health Insurance [employer] [id number] 2023 Unknown [id number] 2021 Unknown [id number] 1966 Unknown [id number] 1966 Unknown [id number] 1966 Unknown [id number] 1966 Unknown [id number] 1966 Unknown [id number] 1959 Unknown [id number] Social History Date Type Detail Facility Start: 10-30-2023 End: 11-06-2023 Sex Assigned At [facility] Start: 11-06-2023 Tobacco smoking status NHIS Never sm oked tobacco [facility] Start: 11-06-2023 Tobacco use and exposure Smoke less tobacco non-user [facility] Start: 01-11-2024 End: 12-27-2024 Alcoholic beverage intake Current drinker of alcohol (finding) [facility] Start: 10-30-2023 End: 11-06-2023 [facility] In a typical week, h ow many times do you talk on the telephone with family, friends, or neighbors? Patient declined [facility] Do you belong to any clubs or organizations such as baptism groups, unions, fraConfortVisuel or athletic groups, or school groups? No [facility] Are you now , , , , never or living with a partner? [facility] How often to you hav e a drink containing alcohol? Monthly or less [facility] How many standard dr inks containing alcohol do you have on a typical day? 1 or 2 [facility] How often do you hav e 6 or more drinks on 1 occasion? Never [facility] How hard is it for y ou to pay for the very basics like food, housing, medical care, and heating Not very hard [facility] (I/We) worried jaguar er (my/our) food would run out before (I/we) got money to buy more. Sometimes true [facility] Start: 07-06-2023 Alcohol Comment caffeine: 2-3 cups per day soda/pop [facility] Start: 1965 Sex assigned at Female [facility] Start: 09-24-2023 Gender identity Identifies as female gender (finding) [facility] Clinical Notes 06-02-2022 to 01-02-2025 Telephone Encounter - Bishop Stark MD - 01/02/2025 12:04 PM EDTTelephone Encounter - Bishop Stark MD - 01/02/2025 12:04 PM EDTMrima Stark MD - 12/27/2024 2:42 PM EDT Note Date & Type Note Facility 01-02-2025 Telephone encount er Note Nuclear scan denied by insurance. Change order to treadmill stress test. Please fax new order to [facility]. [facility] 01-02-2025 Miscellaneous Notes Formattin g of this note might be different from the original. Nuclear scan denied by insurance. Change order to treadmill stress test. Please fax new order to [facility]. documented in this encounter [facility] 12-27-2024 History of Presen t illness Narrative Associated Problem(s): Lightheaded Check echo. Associated Problem(s): Generalized anxiety disorder (CMS/HCC) Worsening symptoms and add effexor. Associated Problem(s): Essential hypertension, benign (CMS/HCC) BP controlled and monitor PRN. Associated Problem(s): Chest pain Recent pain and continued heaviness. Check treadmill cardiolyte to assess for ischemia. Associated Problem(s): Aortic stenosis due to bicuspid aortic valve Frequently lightheaded and check echo. Images from the original note were not included. Subjective Patient ID: Angelica Juarez is a 59 y.o. female who presents for Follow-up (Sweating, nausea, dizziness, chest heaviness/) and Headache. C/o not feeling well over past week. At work developed sudden onset of nausea. Harmony very dizzy and lightheaded. Broke out in a sweat and clothes damp. Balance off and felt like would pass out. Developed heaviness and pressure across chest. Rested about 30 minutes then went home. Hasn't felt well since. Continues to have chest pain and pressure off and on. Symptoms occur at rest and with exertion. Frequently lightheaded. History of aortic stenosis and last echo in 2019. Never had stress test. C/o worsening anxiety over past few weeks. Nervous and worry a lot. Stressed out and overwhelmed. On effexor but no longer helping. Review of Systems Respiratory: Negative for cough, shortness of breath and wheezing. Cardiovascular: Negative for chest pain and palpitations. Gastrointestinal: Negative for abdominal pain, diarrhea, nausea and vomiting. Genitourinary: Negative for dysuria. Objective Physical Exam Constitutional: General: She is not in acute distress. Appearance: Normal appearance. HENT: Head: Normocephalic. Right Ear: Tympanic membrane normal. Left Ear: Tympanic membrane normal. Eyes: Extraocular Movements: Extraocular movements intact. Pupils: Pupils are equal, round, and reactive to light. Cardiovascular: Rate and Rhythm: Normal rate and regular rhythm. Heart sounds: No murmur heard. No friction rub. No gallop. Pulmonary: Effort: Pulmonary effort is normal. Breath sounds: Normal breath sounds. No wheezing, rhonchi or rales. Abdominal: General: Bowel sounds are normal. There is no distension. Palpations: Abdomen is soft. Tenderness: There is no abdominal tenderness. There is no guarding or rebound. Musculoskeletal: Cervical back: Neck supple. Right lower leg: No edema. Left lower leg: No edema. Neurological: Mental Status: She is alert. Assessment/Plan Problem List Items Addressed This Visit Essential hypertension, benign (CMS/HCC) BP controlled and monitor PRN. Relevant Orders Stress test with myocardial perfusion Generalized anxiety disorder (CMS/HCC) Worsening symptoms and add effexor. Relevant Medications venlafaxine XR (Effexor XR) 75 MG 24 hr capsule Aortic stenosis due to bicuspid aortic valve Frequently lightheaded and check echo. Relevant Orders Echocardiogram 2D complete Chest pain Recent pain and continued heaviness. Check treadmill cardiolyte to assess for ischemia. Relevant Orders Echocardiogram 2D complete Stress test with myocardial perfusion Lightheaded - Primary Check echo. Other Visit Diagnoses Annual physical exam Relevant Orders Hemoglobin A1c Basic metabolic panel CBC and differential Hepatic function panel Lipid panel TSH documented in this encounter [facility] 10-25-2024 History of Presen t illness Narrative Images from the original note were not included. Subjective Patient ID: Angelica Juarez is a 59 y.o. female who presents for Foot Pain (Pt is here today for a pain lateral side Rt foot, has been painful for a few months. She has tried compression socks with mini mal relief. /SS: 8). HPI This is a new patient who presents to clinic with concern of right foot pain. This has been going on for a few months. She denies any injury but does state that she has a history of rolling her ankles and stepping in holes . Patient describes pain along the lateral aspect of the right foot. Worse with walking and standing. She has not tried any treatment. Review of Systems Constitutional: Negative for activity change and appetite change. Respiratory: Negative for chest tightness and shortness of breath. Cardiovascular: Negative for chest pain. Musculoskeletal: Positive for arthralgias and gait problem. Skin: Negative for color change and wound. Neurological: Negative for weakness and numbness. Psychiatric/Behavioral: Negative for agitation and behavioral problems. Hematological: Does not bruise/bleed easily. Endocrine: Negative for cold intolerance and heat intolerance. Allergic/Immunologic: Negative for immunocompromised state. Past medical History Past Medical History: Diagnosis Date Benign essential hypertension (CMS/HCC) Chronic pain of both knees Chronic superficial gastritis without bleeding Cow's milk protein allergy DDD (degenerative disc disease), lumbar ALYX (generalized anxiety disorder) (CMS/HCC) Hypertension (CMS/HCC) Left arm pain Median nerve compression Osteoarthritis, generalized Plaque psoriasis (CMS/HCC) Vitamin D deficiency Medications Current Outpatient Medications: cholecalciferol (Vitamin D-3) 50 MCG (1999 UT) capsule, Take 2,000 Units by mouth in the morning., Disp: , Rfl: losartan-hydroCHLOROthiazide (Hyzaar) 100-25 MG tablet, Take 1 tablet by mouth Daily, Disp: 30 tablet, Rfl: 11 spironolactone (Aldactone) 25 MG tablet, Take 1 tablet (25 mg) by mouth in the morning., Disp: 30 tablet, Rfl: 11 venlafaxine XR (Effexor XR) 150 MG 24 hr capsule, Take 1 capsule (150 mg) by mouth Daily Do not crush or chew., Disp: 30 capsule, Rfl: 3 meloxicam (Mobic) 15 MG tablet, Take 1 tablet (15 mg) by mouth Daily for 21 days, Disp: 21 tablet, Rfl: 0 methylPREDNISolone (Medrol Dospak) 4 MG tablets, Take as directed on package., Disp: 21 tablet, Rfl: 0 Allergies Bystolic [nebivolol hcl], Claritin [loratadine], Lisinopril, and Lactose Past Surgical History Past Surgical History: Procedure Laterality Date APPENDECTOMY BLADDER SUSPENSION CARPAL TUNNEL RELEASE Bilateral CHOLECYSTECTOMY FOOT SURGERY Right 2015 heel spurs removed HERNIA REPAIR HYSTERECTOMY LAPAROSCOPY DIAGNOSTIC / BIOPSY / ASPIRATION / LYSIS laperoscopy ROTATOR CUFF REPAIR Left TENDON REPAIR Left after rotator sx TONSILLECTOMY TUBAL LIGATION WISDOM TOOTH EXTRACTION wisdom teeth Family History Family History Problem Relation Name Age of Onset Hypertension Mother Heart disease Mother Liver cancer Mother Cancer Maternal Grandmother Diabetes Maternal Grandmother Heart disease Maternal Grandfather Hypertension Maternal Grandfather Stroke Maternal Grandfather Breast cancer Sibling Objective Physical Exam Constitutional: Appearance: She is obese. HENT: Head: Normocephalic and atraumatic. Cardiovascular: Pulses: Normal pulses. Pulmonary: Effort: Pulmonary effort is normal. No respiratory distress. Abdominal: Palpations: There is no mass. Musculoskeletal: Cervical back: No rigidity. Comments: Weightbearing examination reveals pes planus morphology. She is able to perform a double heel rise test without tenderness. Right foot: Isolated and maximal tenderness over the 5th metatarsal base at the insertion of the peroneal brevis tendon. She has some minor tenderness to the peroneal tendon distal to the fibula and some minor tenderness along the lateral wall of the cuboid. Muscle strength 5/5 for all quadrants with some tenderness on resisted eversion. Ankle dorsiflexion 0 degrees with the knee extended, flexed. Range of motion of the subtalar joint smooth, nonpainful. Skin: Capillary Refill: Capillary refill takes less than 2 seconds. Findings: No lesion or rash. Neurological: Mental Status: She is alert. Comments: No loss of protective sensation, gross sensation intact. Psychiatric: Mood and Affect: Mood normal. Behavior: Behavior normal. XR foot 3+ views right Imaging Result: AP, medial oblique, lateral views are weight-bearing. Decreased calcaneal inclination, increased talar declination. N/C J fault. Enlarged posterior process of the talus. Lateral deviation of the sesamoid complex. Possible bipartite os peroneum. No acute fractures or dislocations noted. Assessment/Plan ICD-10-CM 1. Peroneal tendinitis of right lower extremity M76.71 XR foot 3+ views right meloxicam (Mobic) 15 MG tablet methylPREDNISolone (Medrol Dospak) 4 MG tablets 2. Right foot pain M79.671 XR foot 3+ views right 3. Instability of right ankle joint M25.371 4. Difficulty walking R26.2 Patient was examined and evaluated. 3 views of the affected foot were taken in office today and I discussed my findings. I discussed causes and treatment options for peroneal tendinitis. At this time I am recommending a a Medrol Dosepak followed by 3 weeks of meloxicam to reduce inflammation and to help with his symptomatology. Prescriptions sent to patient's pharmacy. Additionally I have recommended contrast bathing nightly to help flush the inflammatory mediators from the painful area. I have recommended an ASO brace for stabilization and limitation of motion of the ankle and rearfoot. Patient agreed and was fitted for the appropriate brace. Goals of therapy include prevent further injury, stabilization, reduction of stress and pressure to the injured area. Anticipated time of use - at least 1 month. At the time of dispensing it is suitable and not substandard. Patient is able to apply the brace independently. It is comfortable to walk and fits inside the shoe. We will see how these modalities work and follow-up in 1 month. If there has been no improvement at that time I may consider an MRI. This note was created with the assistance of a speech recognition program. While intending to generate a timely document that accurately reflects the content of the visit, no guarantee can be provided that every grammatical or spelling mistake has been or will be identified or corrected. Thank you for your understanding. Kirk Waldron DPM documented in this encounter [facility] 07-07-2023 Evaluation note Encounter Date Diagnosis Assessment Notes Jun, Acute costochondritis (ICD-10 - M94.0) No signs of bacterial infection, lung sounds clear. We discussed obtaining XR today, low suspicion for pneumonia (nonproductive cough, clear lung james, afebrile) or rib fracture/disloc ation (no injury). We discussed conservative treatment and if sx do no improve or worsen will obtain CXR at that point. Patient agrees with plan. Advised to take meds as directed. Take steroid with food, avoid additional NSAIDs while on steroid, Tylenol OK. Discussed SE of steroid, advised may increase BP and she should closely monitor whil taking, contact PCP if BPs remain elevated. Increase fluids and rest. Tessalon as needed for cough. If sx change or worsen immediate follow up. ER for worsening SOB, difficulty breathing, chest pain, palpitations, light headedness, fevers unresponsive to antipyretics. Costochondritis home care material was printed. Patient verbalizes understanding and is agreeable to treatment plan. [employer] Other 12-01-2023 Evaluation note* Encounter Date Diagnosis Assessment Notes Treatment Notes Treatment Clinical Notes Jun, Cough, unspecified type (ICD-10 - R05.9) Jun, Viral bronchitis (ICD-10 - J20.8) Advised patient that rapid COVID test was negative today in office. Discussed process with patient in detail. Will treat as viral today based on physical exam and duration of symptoms, antibiotics are not indicated for viral infections. Advised patient that viral syndromes last 7-10 days, cough may linger for 3 weeks. Take medications as prescribed, reviewed side effects of steroid, take with food and plenty of water. Supportive care as directed, push fluids and rest, may use Tylenol/Motrin as needed for fever/discomfort, cool mist humidifier. May use Baden as needed for cough, do not take any other OTCs while using Baden. Patient to follow up with PCP in 2-3 days. Immediate eval if SOB, difficulty breathing, chest pain, dizziness, or other concerning symptoms. Patient verbalizes understanding and is agreeable to treatment plan. [employer] Other 11-14-2022 Evaluation note* Encounter Date Diagnosis Assessment Notes Treatment Notes Treatment Clinical Notes May, Puncture wound of right foot, initial encounter (ICD-10 - S91.331A) Drink plenty fluids, get plenty of rest. Continue your home medications as prescribed. Take the cephalexin as prescribed until gone. Soak your foot in soapy hot water once or twice a day. Keep the wound covered with a Band-Aid and Neosporin. Follow-up with your family physician for any further concerns. Go to the ER for any signs of further infection such as streaking, fever, chills, nausea, vomiting May, Other Puncture wound material was printed [employer] Other Evaluation noteNo [employer] Other Evaluation note* Diagnosis Greater trochanteric bursitis of right hip- Primary Essential hypertension, benign (CMS/HCC) Essential hypertension, benign Generalized osteoarthrosis, involving multiple sites Obesity (BMI 30-39.9) Essential hypertension, benign (CMS/HCC)- Primary Essential hypertension, benign Greater trochanteric bursitis of right hip Generalized anxiety disorder (CMS/HCC) Generalized anxiety disorder Obesity (BMI 30-39.9) Essential hypertension, benign (CMS/HCC)- Primary Essential hypertension, benign Obesity (BMI 30-39.9) Greater trochanteric bursitis of right hip Generalized anxiety disorder (CMS/HCC) Generalized anxiety disorder Peroneal tendinitis of right lower extremity- Primary Right foot pain Pain in soft tissues of limb Instability of right ankle joint Difficulty walking Difficulty in walking documented in this encounter [facility]* Diagnosis Greater trochanteric bursitis of right hip- Primary Essential hypertension, benign (CMS/HCC) Essential hypertension, benign Generalized osteoarthrosis, involving multiple sites Obesity (BMI 30-39.9) Essential hypertension, benign (CMS/HCC)- Primary Essential hypertension, benign Greater trochanteric bursitis of right hip Generalized anxiety disorder (CMS/HCC) Generalized anxiety disorder Obesity (BMI 30-39.9) Essential hypertension, benign (CMS/HCC)- Primary Essential hypertension, benign Obesity (BMI 30-39.9) Greater trochanteric bursitis of right hip Generalized anxiety disorder (CMS/HCC) Generalized anxiety disorder Lightheaded- Primary Dizziness and giddiness Chest pain, unspecified type Aortic stenosis due to bicuspid aortic valve Essential hypertension, benign (CMS/HCC) Essential hypertension, benign Generalized anxiety disorder (CMS/HCC) Generalized anxiety disorder Annual physical exam Routine general medical examination at a health care facility documented in this encounter [facility] HealthcareEvaluation note* Diagnosis Greater trochanteric bursitis of right hip- Primary Essential hypertension, benign Essential hypertension, benign Generalized osteoarthrosis, involving multiple sites Obesity (BMI 30-39.9) Essential hypertension, benign- Primary Essential hypertension, benign Greater trochanteric bursitis of right hip Generalized anxiety disorder Generalized anxiety disorder Obesity (BMI 30-39.9) Essential hypertension, benign- Primary Essential hypertension, benign Obesity (BMI 30-39.9) Greater trochanteric bursitis of right hip Generalized anxiety disorder Generalized anxiety disorder Lightheaded- Primary Dizziness and giddiness Chest pain, unspecified type Aortic stenosis due to bicuspid aortic valve Essential hypertension, benign Essential hypertension, benign Generalized anxiety disorder Generalized anxiety disorder Annual physical exam Routine general medical examination at a health care facility Chest pain, unspecified type- Primary Lightheaded Dizziness and giddiness documented in this encounter [facility] HealthcareEvaluation note* Diagnosis Greater trochanteric bursitis of right hip- Primary Essential hypertension, benign Essential hypertension, benign Generalized osteoarthrosis, involving multiple sites Obesity (BMI 30-39.9) Essential hypertension, benign- Primary Essential hypertension, benign Greater trochanteric bursitis of right hip Generalized anxiety disorder Generalized anxiety disorder Obesity (BMI 30-39.9) Essential hypertension, benign- Primary Essential hypertension, benign Obesity (BMI 30-39.9) Greater trochanteric bursitis of right hip Generalized anxiety disorder Generalized anxiety disorder Lightheaded- Primary Dizziness and giddiness Chest pain, unspecified type Aortic stenosis due to bicuspid aortic valve Essential hypertension, benign Essential hypertension, benign Generalized anxiety disorder Generalized anxiety disorder Annual physical exam Routine general medical examination at a health care facility Essential hypertension, benign Essential hypertension, benign documented in this encounter [facility] HealthcareHistory general Narrative - Reported* Type Description Date Medical History Hypertension Medical History menopause Surgical History hysterectomy Surgical History cholecystectomy Surgical History appendectomy Surgical History hernia Surgical History carpal tunnel release Surgical History rotator cuff Surgical History left arm Hospitalization History see above [employer] Other Summary Purpose Family History No Family History Records FoundNo Family History Records Found Advance Directives No Advanced Directives Records FoundNo Advanced Directives Records Found Additional Source Comments INFORMATION SOURCE (unrecogn ized section and content) DATE CREATED AUTHOR 07/12/2020 [facility] DATE CREATED AUTHOR AUTHOR'S ORGANIZ ATION 12/29/2024 [facility] EPIC REASON FOR VISIT (unrecogniz ed section and content) Reason Comments Foot Pain Pt is here today for a pain lateral side Rt foot, has been painful for a few months. She has tried compression socks with mini mal relief. 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 Relationship Specialty Start Date End Date Bishop Stark MD [address] [place] [phone] PCP - General Family Medicine 11/06/23 Bishop Stark MD [address] [place] [phone] PCP - [place] 12/19/23 Bishop Stark MD [address] [place] [phone] PCP - Medical [employer] 06/19/21 07/19/99 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 Relationship Specialty Start Date End Date Bishop Stark MD [address] [place] [phone] PCP - General Family Medicine 11/06/23 Bishop Stark MD [address] [place] [phone] PCP - Medical [employer] 06/19/21 07/19/99 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 Relationship Specialty Start Date End Date Bishop Stark MD [address] [place] [phone] PCP - General Family Medicine 11/06/23 Bishop Stark MD [address] [place] [phone] PCP - Medical [employer] 06/19/21 07/19/99 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 Relationship Specialty Start Date End Date Bishop Stark MD [address] [place] [phone] PCP - General Family Medicine 11/06/23 Bishop Stark MD [address] [place] [phone] PCP - Medical [employer] 06/19/21 07/19/99 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 This clinical summary was aggregated from multiple sources. Caution should be exercised in using it in the provision of clinical care. This summary normalizes information from multiple sources, and as a consequence, information in this document may materially change the coding, format and clinical context of patient data. In addition, data may be omitted in some cases. CLINICAL DECISIONS SHOULD BE BASED ON THE PRIMARY CLINICAL RECORDS. [facility] [employer] [facility]. provides no warranty or guarantee of the accuracy or completeness of information in this document.
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
--- NOTE | 2025-05-04 12:56 | ECG_ITS ---
The [facility] Test Date: 2025-05-04 Pat Name: DANY KHANNA Department: Room: - Gender: Female Prestidigitator: : 1965 Requested By: ROSA STARK Order Number: [id number] Ame MD: LAKISHA CHINCHILLA M.D. Measurements Intervals [place] Rate: 64 P: 51 UT: 196 QRS: 0 QRSD: 88 T: -30 QT: 414 QTc: 423 Interpretive Statements 1100 Sinus rhythm 3114 Cannot rule out anterior myocardial infarction, age undetermined 5222 Moderate voltage criteria for LVH, may be normal variant 9150 abnormal ECG No previous ECG available for comparison Electronically Signed On 05-04-2025 19:54:59 EDT by LAKISHA CHINCHILLA M.D.
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
[2025-05-04] MEDS: ORPHENADRINE 60 MG/2 ML VIAL IV (13:19)
[2025-05-04] MEDS: KETOROLAC TROMETHAMINE 30 MG/ML VIAL IVP (13:19)
[2025-05-04 13:29] LABS: Hematocrit 40.6 % (36.0-48.0); Hemoglobin 13.6 g/dL (12.0-16.0); Immature Granulocytes Abs Auto 0.02 10^3/uL (0.00-0.03); Immature Granulocytes Pct Auto 0.3 % (0.0-0.5); Lymphocytes Absolute Auto 1.7 10^3/uL (1.2-3.8); Mean Corpuscular HGB Conc 33.5 g/dL (29.9-35.2); Mean Corpuscular Hemoglobin 29.9 pg (26.7-34.0); Mean Corpuscular Volume 89.2 fL (81.0-99.0); Platelet Count 231 10^3/uL (150-450); Red Blood Count 4.55 10^6/uL (4.20-5.40); White Blood Count 7.3 10^3/uL (4.0-11.0)
[2025-05-04 13:53] LABS: Alanine Aminotransferase 27 U/L (14-59); Albumin Globulin Ratio 1.1; Albumin Level 3.8 g/dL (3.4-5.0); Alkaline Phosphatase 148 U/L (46-116); Anion Gap 12.3; Aspartate Amino Transferase 16 U/L (15-37); Blood Urea Nitrogen 13.0 mg/dL (7.0-18.0); Calcium 9.4 mg/dL (8.5-10.1); Carbon Dioxide 27.5 mmol/L (21.0-32.0); Chloride 107 mmol/L (98-107); Estimated GFR (African America >60 (>=60 mL/min/1.73m^2); Estimated GFR (Non-African Ame >60 (>=60 mL/min/1.73m^2); Globulin 3.5 g/dL; Glucose 89 mg/dL (74-106); Potassium 3.8 mmol/L (3.5-5.1); Sodium 143 mmol/L (136-145); Total Protein 7.3 g/dL (6.4-8.2)
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
== END 2025-05-04 14:52 | disposition home or self-care (01) ==
PROVIDERS: Emergency Provider Emergency Medicine; PCP Family Medicine
DX: S13.9XXA Sprain of joints and ligaments of unspecified parts of neck, initial encounter (principal); V40.6XXA Car passenger injured in collision with pedestrian or animal in traffic accident, initial encounter; R07.89 Other chest pain
CPT/HCPCS: 36415; 70450; 71250; 72125; 76376; 80053; 84484; 85025; 93005; 96374; 96375; 99284; 99285; J1885; J2360